=== PATIENT | male | born 1955 | race African-American/Black ===

== ENCOUNTER 2018-12-13 13:28 | Emergency (ER) | payer OTHER ==
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
[2018-12-13 13:45] VITALS: BP 115/84; PULSE 68; TEMP 98; BMI 27.2
[2018-12-13] MEDS ORDERED: KETOROLAC TROMETHAMINE 30 MG/1 ML VIAL IM ONE (14:39)
[2018-12-13] MEDS ORDERED: diazePAM 5 MG TABLET PO ONE (14:41)
[2018-12-13] MEDS ORDERED: KETOROLAC TROMETHAMINE 30 MG/1 ML VIAL ONE (14:43)
[2018-12-13] MEDS ORDERED: diazePAM 5 MG TABLET ONE (14:43)
== END 2018-12-13 15:51 | disposition home or self-care (01) ==
LOC: FER 13:28
PROC: 3E0233Z Introduction of Anti-inflammatory into Muscle, Percutaneous Approach (ICD-10-PCS; principal; 2018-12-13)
DX: Z04.1 Encounter for examination and observation following transport accident (principal); M54.2 Cervicalgia; V43.52XA Car driver injured in collision with other type car in traffic accident, initial encounter; Y93.89 Activity, other specified; Y92.410 Unspecified street and highway as the place of occurrence of the external cause
CPT/HCPCS: 72125-TC; 99282-25

== ENCOUNTER 2019-02-02 09:22 | Emergency (ER) | payer OTHER ==
[2019-02-02 09:26] VITALS: BP 134/91; PULSE 79; TEMP 98.5; BMI 27.2
[2019-02-02] MEDS ORDERED: IBUPROFEN 600 MG TABLET (FP) PO ONE ×2 (09:43→09:51)
--- NOTE | 2019-02-02 09:52 | PDOC ---
History of Present Illness - General Chief Complaint: Sore Throat Stated Complaint: SORE THROAT Time Seen by Provider: 02/02/19 09:23 - History of Present Illness Initial Comments: Mr. Max is 63 YO male with PMH significant for HTN presenting with a 2-day history of sore throat, headache, and productive cough with white non- malodorous sputum. He suspects he has strep throat because he had it in 2003. Is taking emergen-C and one dose of tylenol for the RAMIREZ. No sick contacts. No introduction to new foods. Denies N/V, SOB, pleuritic chest pain, abdominal pain , or diarrhea. PMHx: none Sx: orthopedic surgery in c-spine, b/l hips, left elbow; benign lumbar spine tumor s/p resection Meds: none Allergies: none Past History - Past Medical History Allergies/Adverse Reactions: Allergies Allergy/AdvReac Type Severity Reaction Status Date / Time No Known Allergies Allergy Verified 02/02/19 09:23 Home Medications: Ambulatory Orders NK [No Known Home Medication] 02/02/19 COPD: No - Psycho Social/Smoking Cessation Hx Smoking History: Never smoked Hx Alcohol Use: No Drug/Substance Use Hx: No Review of Systems - Review of Systems Comments:: GENERAL/CONSTITUTIONAL: No fever or chills. No weakness._ HEAD, EYES, EARS, NOSE AND THROAT: No change in vision. No change in hearing. Reports sore throat. CARDIOVASCULAR: No chest pain or shortness of breath_ RESPIRATORY: Reports cough, denies hemoptysis_ GASTROINTESTINAL: No nausea, vomiting, diarrhea or constipation._ GENITOURINARY: No dysuria, frequency, or change in urination._ MUSCULOSKELETAL: No joint or muscle swelling or pain. No neck or back pain._ SKIN: No rash_ NEUROLOGIC: Reports headache. No vertigo, loss of consciousness, or change in strength/sensation._ ENDOCRINE: No increased thirst. No abnormal weight change_ HEMATOLOGIC/LYMPHATIC: No anemia, easy bleeding, or history of blood clots._ ALLERGIC/IMMUNOLOGIC: No hives or skin allergy._ *Physical Exam - Vital Signs Last Vital Signs Temp Pulse Resp BP Pulse Ox 98.5 F 79 16 134/91 100 02/02/19 09:23 02/02/19 09:23 02/02/19 09:23 02/02/19 09:23 02/02/19 09:23 - Physical Exam Comments: GENERAL: Awake, alert, and oriented to person/place/time, in no acute distress_ HEAD: No signs of trauma, normocephalic, atraumatic _ EYES: PERRLA, EOMI, sclera anicteric, conjunctiva clear_ ENT: Hearing grossly normal, nares patent. Oropharynx mildly erythematous and without exudates. No enlargement of tonsils. No uvular deviation. Moist mucosa. NECK: Normal ROM, supple, positive non-tender cervical lymphadenopathy. LUNGS: No distress, speaks in full sentences, clear to auscultation bilaterally _ HEART: Regular rate and rhythm, normal S1 and S2, no murmurs appreciated, peripheral pulses normal and equal bilaterally._ ABDOMEN: Soft, nontender, normoactive bowel sounds. No guarding, no rebound. No masses_ EXTREMITIES: Normal inspection, Normal range of motion, no edema. No clubbing or cyanosis_ NEUROLOGICAL: Cranial nerves II through XII grossly intact. Normal speech, normal gait, no focal sensorimotor deficits _ SKIN: Warm, Dry, normal turgor, no rashes or lesions noted_ Medical Decision Making - Medical Decision Making 02/02/19 09:58 63M presenting with cough, sore throat, headache. Centor score 1. -flu swab -motrin 02/02/19 11:30 rapid strep negative. plan to d/c home, symptomatic relief, f/u PCP PRN. Discharge - Discharge Information Problems reviewed: Yes Clinical Impression/Diagnosis: URI (upper respiratory infection) Qualifiers: URI type: unspecified viral URI Qualified Code(s): J06.9 - Acute upper respiratory infection, unspecified Condition: Stable Disposition: HOME - Follow up/Referral Referrals: aJg Lobo MD [Primary Care Provider] - - Patient Discharge Instructions Patient Printed Discharge Instructions: DI for Viral Upper Respiratory Infection -- Adult Additional Instructions: Your symptoms are most consistent with a viral upper respiratory infection. There is no evidence at this time of a strep throat infection, and an initial culture was negative. Activity as tolerated. Stay hydrated. Tylenol 1000 mg every 8 hours and/or ibuprofen 600 mg every 8 hours as needed for pain. Take over the counter decongestants as needed. Continue your medications as previously prescribed by your physician. You should follow up with your primary doctor as needed regarding today's emergency department visit. Return to the emergency department for any new or concerning symptoms, particularly persistent or worsening high fever, worsening cough or lung pain or difficulty breathing, severe generalized weakness. - Post Discharge Activity
--- NOTE | 2019-02-02 10:36 | PDOC ---
Attending Attestation - Resident Resident Name: AdalbertoRamesh - ED Attending Attestation I have performed the following: I have examined & evaluated the patient, The case was reviewed & discussed with the resident, I agree w/resident's findings & plan - HPI HPI: 02/02/19 10:32 63-year-old healthy male (h/o spine surgeries) p/w 2d throat pain and one day dry cough with sinus congestion. Tmax 99, slight body aches. +odynophagia but no dysphagia, no voice change, tolerating PO. cough dry, no SOB/YU. no travel or known sick contacts. Had strep throat 15y ago, but no recurring infections or ENT surgery. non-smoker. - Physicial Exam PE: 02/02/19 10:34 vss, afebrile pleasant, ambulatory, conversant with full sentences and clear voice neck supple, +surgical spine incisional scar. OP clear without swelling/exudate/ plaques. subtle LAD. heart regular, lungs clear without wheeze/crackles/focally decreased breath sounds - Medical Decision Making 02/02/19 10:35 63-year-old healthy male with URI symptoms for 2 days of sore throat and nasal congestion/dry cough, afebrile here with low Cerner score and no airway or respiratory compromise. Rapid strep negative Likely viral etiology, continue with Tylenol and NSAIDs as needed and over-the- counter decongestants Counseled regarding return criteria for symptoms or signs of pneumonia, no indication for imaging at this time. Understands return criteria. Discharge - Discharge Information Problems reviewed: Yes Clinical Impression/Diagnosis: URI (upper respiratory infection) Qualifiers: URI type: unspecified viral URI Qualified Code(s): J06.9 - Acute upper respiratory infection, unspecified Condition: Stable Disposition: HOME - Follow up/Referral Referrals: Jag Lobo MD [Primary Care Provider] - - Patient Discharge Instructions Patient Printed Discharge Instructions: DI for Viral Upper Respiratory Infection -- Adult Additional Instructions: Your symptoms are most consistent with a viral upper respiratory infection. There is no evidence at this time of a strep throat infection, and an initial culture was negative. Activity as tolerated. Stay hydrated. Tylenol 1000 mg every 8 hours and/or ibuprofen 600 mg every 8 hours as needed for pain. Take over the counter decongestants as needed. Continue your medications as previously prescribed by your physician. You should follow up with your primary doctor as needed regarding today's emergency department visit. Return to the emergency department for any new or concerning symptoms, particularly persistent or worsening high fever, worsening cough or lung pain or difficulty breathing, severe generalized weakness. - Post Discharge Activity
== END 2019-02-02 10:52 | disposition home or self-care (01) ==
LOC: FER 09:22
DX: J06.9 Acute upper respiratory infection, unspecified (principal); I10 Essential (primary) hypertension
CPT/HCPCS: 87070; 87880; 99282-25

== ENCOUNTER 2019-10-16 11:51 | Emergency (ER) | payer OTHER ==
--- NOTE | 2019-10-16 12:16 | PDOC ---
History of Present Illness - General Chief Complaint: Edema Stated Complaint: LEFT ARM SWELLING AND TIGHT SENSATION Time Seen by Provider: 10/16/19 12:13 - History of Present Illness Initial Comments: 10/16/19 13:07 64yo male with hx of c spine sx, l-spine sx (tumor removed), hip replacement and covid-19+ in June presents for eval of joint pain and swelling. Pt states he woke up today and felt his L arm was tight, swollen and had pain at the L elbow and wrist. States last night his L ankle felt swollen and tight. States he slept with his leg elevated and it is better today. Pt states about a week ago he had pain the R shoulder and R hip which has resolved. States since having covid (june) he has not worked out, but has been working out recently - jumping rope 2x this week. Pt denies recent tick bites, no rashes. Pt states he felt a little discomfort in his upper abd - hx of gerd. Denies cp/sob. No palpitations. No f/c. No cough. No merritt. No neck or back pain. Pt currently works as a [employer] for [employer]. 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 Pt denies abd pain. No n/v/d. States he has been eating some salty food recently, but also states he is a vegan. Pt denies all other complaints. Past History - Medical History Allergies/Adverse Reactions: Allergies Allergy/AdvReac Type Severity Reaction Status Date / Time No Known Allergies Allergy Verified 10/16/19 11:53 Home Medications: Ambulatory Orders NK [No Known Home Medication] 10/16/19 COPD: No Other medical history: COVID 04 JULY 2019 - Psycho-Social/Smoking History Smoking History: Never smoked Have you smoked in the past 12 months: No Information on smoking cessation initiated: No - Substance Abuse Hx (Audit-C & DAST Scrn) How often the patient has a drink containing alcohol: Never Score: In Men: 4 or > Positive; In Women: 3 or > Positive: 0 Screen Result (Pos requires Nsg. Audit-10AR): Negative In the last yr the pt used illegal drug/Rx for NonMed reason: No Score: Yes response is considered Positive: 0 Screen Result (Positive result requires Nsg. DAST-10): Negative Review of Systems - Review of Systems Able to Perform ROS?: Yes Is the patient limited Pakistani proficient: No Constitutional: No: Chills, Fever HEENTM: No: Ear Pain, Nose Congestion, Throat Pain Respiratory: No: Cough, Shortness of Breath, Wheezing Cardiac (ROS): No: Chest Pain, Lightheadedness, Palpitations ABD/GI: Yes: Other (epigastric pain). No: Diarrhea, Nausea, Vomiting, Abdominal cramping : No: Burning, Dysuria, Discharge, Flank Pain, Pain Musculoskeletal: Yes: Joint Pain, Joint Swelling, Joint Stiffness. No: Back Pain, Neck Pain Integumentary: No: Erythema, Lesions, Lumps, Rash Neurological: No: Headache, Numbness, Paresthesia, Tingling, Tremors, Weakness, Ataxia All Other Systems: Reviewed and Negative *Physical Exam - Vital Signs Last Vital Signs Temp Pulse Resp BP Pulse Ox 98.2 F 80 16 112/81 98 10/16/19 11:53 10/16/19 11:53 10/16/19 11:53 10/16/19 11:53 10/16/19 11:53 - Physical Exam General Appearance: Yes: Nourished, Appropriately Dressed. No: Apparent Distress HEENT: positive: EOMI, Normal Voice Neck: positive: Supple, Other (well healed incision to the c spine with a keloid formation). negative: Tender midline Respiratory/Chest: positive: Lungs Clear, Normal Breath Sounds. negative: Chest Tender, Respiratory Distress Cardiovascular: positive: Regular Rhythm, Regular Rate, S1, S2. negative: Edema Gastrointestinal/Abdominal: positive: Soft. negative: Guarding, Rebound, Tenderness Musculoskeletal: positive: Normal Inspection, Other (well healed incision to the l spine). negative: Vertebral Tenderness Extremity: positive: Normal Capillary Refill, Normal Range of Motion, Inflammation (L elbow ttp over the medial epicondyle, normal rom, no pain with active or passive rom, neg L wrist ttp over anatomic snuff box, no pain with supination/pronation of the forearm, no pain with flexion/extension fo the wrist, no ttp over the muscles in the forearm, FROM of b/l UE, no calf ttp b/l, ankles with FROM b/l, pulese intact, ambulatory in the ER with a steady gait). negative: Pedal Edema, Swelling Integumentary: positive: Normal Color, Dry, Warm. 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 negative: Sensory Deficit Heart Score/ECG Review - ECG Intrepretation Comment:: 10/16/19 13:14 sinus at 72, 1st degree av block, t wave inversions v5-6, mild st depression II, III, no changes from prior ekg 03/2019 ED Treatment Course - LABORATORY CBC & Chemistry Diagram: 10/16/19 13:32 10/16/19 13:32 - RADIOLOGY Radiology Studies Ordered: Category Date Time Status CHEST PA & LAT [RAD] Stat Radiology 10/16/19 12:14 Ordered ELBOW-LEFT [RAD] Stat Radiology 10/16/19 12:14 Ordered WRIST W/HAND-LEFT* [RAD] Stat Radiology 10/16/19 12:14 Ordered DUPLEX VASCUL US-1 ARM [US] Stat Ultrasound 10/16/19 12:15 Ordered Medical Decision Making - Medical Decision Making 10/16/19 13:14 a/p: 64yo male with L arm pain -recent covid infection in June, will send for duplex ultrasound -xray joints -poss arthritis vs tendonitis -also with epigastric pain, will send labs, ekg, trop -recent workout program, will send CK -will give ivf hydration, toradol for pain -no cp/sob/cough/f/c. -pt ambulatory in the ER with a steady gait -will monitor and reassess 10/16/19 13:31 cxr clear wrist xray without fx elbow xray without fx, shows arthritis, wet reads on all xrays pending official reads 10/16/19 14:00 cbc reviewed and stable trop neg 10/16/19 14:54 no dvt bnp pending 10/16/19 14:58 pt states feeling better bnp 71 discussed labs and ekg pt states he was told by his cards that his EKG is abnl, had a stress 2 years ago and normal states he will call his cards, ortho at [facility], pmd this week for follow up pt finishing ivf stable for dc to home Discharge - Discharge Information Problems reviewed: Yes Clinical Impression/Diagnosis: Joint pain, Elbow pain, left Condition: Stable Disposition: HOME - Admission No - Follow up/Referral Referrals: Orthopedics, [facility] [Other] - Patient Discharge Instructions Patient Printed Discharge Instructions: DI for Joint Pain, DI for Arthralgia Additional Instructions: Please apply ice - 20 min on and 20 min off. You may take tylenol or motrin as needed for pain. 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 A lyme test was sent and we will call you with the results. Please return to the ER with any further concerns or complaints. - Post Discharge Activity
[2019-10-16] MEDS ORDERED: LACTATED RINGERS SOLUTION 1000 ML INFUS.BAG IV ONE (12:17)
[2019-10-16] MEDS ORDERED: KETOROLAC TROMETHAMINE 15 MG/ML VIAL IVPUSH ONE (12:17)
[2019-10-16 12:25] VITALS: BP 112/81; PULSE 80; TEMP 98.2; BMI 27.8
[2019-10-16] MEDS ORDERED: KETOROLAC TROMETHAMINE 15 MG/ML VIAL ONE (13:18)
[2019-10-16 13:36] LABS: BASO % 1.1 % (0-2.0); EOS % 0.9 % (0-4.5); HEMOGLOBIN 14.8 GM/dl (11.7-16.9); LYMPH % 23.1 % (8-40); MCHC 34.3 g/dl (32.0-35.9); MEAN CELL VOLUME 90.4 fl (80-96); MEAN PLT VOLUME 7.4 fl (7.5-11.1); MONO % 7.2 % (3.8-10.2); NEUT % 67.7 % (42.8-82.8); PLATELET COUNT 274 K/MM3 (134-434); RBC 4.75 M/mm3 (4.00-5.60); RDW 12.6 % (11.9-15.9); WHITE BLOOD COUNT 4.9 K/mm3 (4.0-10.8)
[2019-10-16 13:59] LABS: ALBUMIN 3.6 g/dl (3.4-5.0); BILIRUBIN,TOTAL 1.1 mg/dl (0.2-1); CALCIUM 8.5 mg/dl (8.5-10); POTASSIUM 4.2 mmol/L (3.5-5.1); TOT PROT 6.1 g/dl (6.4-8.2)
[2019-10-16 14:54] LABS: N-TERMINAL BNP 71.2 pg/ml (5-125)
--- NOTE | 2019-10-18 10:25 | EKG ---
Test Reason : Blood Pressure : / mmHG Vent. Rate : 072 BPM Atrial Rate : 072 BPM P-R Int : 202 ms QRS Dur : 088 ms QT Int : 414 ms P-R-T Axes : 089 -16 -86 degrees QTc Int : 453 ms NORMAL SINUS RHYTHM IRBBB ABNORMAL ECG WHEN COMPARED WITH ECG OF 25-MAR-2019 10:43, [place] INTERVAL HAS DECREASED T WAVE INVERSION NOW EVIDENT IN INFERIOR LEADS INVERTED T WAVES HAVE REPLACED NONSPECIFIC T WAVE ABNORMALITY IN LATERAL LEADS Confirmed by Oralia Tavarez ([id number]) on 10/18/2019 10:25:12 AM Referred By: RICHARD MENDOZA Confirmed By:Oralia Tavarez
== END 2019-10-16 15:30 | disposition home or self-care (01) ==
LOC: FER 11:51
PROC: 3E0233Z Introduction of Anti-inflammatory into Muscle, Percutaneous Approach (ICD-10-PCS; principal; 2019-10-16)
DX: M25.522 Pain in left elbow (principal)
CPT/HCPCS: 36415; 71046-TC-FY; 73070-TC-LT-FY; 73110-TC-LT-FY; 73130-TC-LT-FY; 80053; 82550; 83880; 84484; 85025; 93005; 93971; 99284-25

== ENCOUNTER 2020-05-26 20:00 | Emergency (ER) | payer OTHER ==
[2020-05-26 20:07] VITALS: BP 156/94; PULSE 68; TEMP 98.8; BMI 28.6
== END 2020-05-26 21:49 | disposition home or self-care (01) ==
LOC: FER 20:00
DX: B34.9 Viral infection, unspecified (principal)
CPT/HCPCS: 87804; 87880; 99283-25; C9803; U0003

== ENCOUNTER 2020-10-23 08:26 | Emergency (ER) | payer OTHER ==
[2020-10-23 08:34] VITALS: BP 117/78; PULSE 81; TEMP 97.8; BMI 27.5
[2020-10-23] MEDS ORDERED: DIPHTH,PERTUSS(ACELL),TET 0.5 ML DISP.SYRIN IM ONE ×2 (08:34→08:56)
[2020-10-23] MEDS ORDERED: LIDOCAINE HCL 2% (20ML MULTI-DOSE VIAL) ONE (09:43)
== END 2020-10-23 10:04 | disposition home or self-care (01) ==
LOC: FER 08:26
PROC: 0HQGXZZ Repair Left Hand Skin, External Approach (ICD-10-PCS; principal; 2020-10-23)
PROC: 3E0234Z Introduction of Serum, Toxoid and Vaccine into Muscle, Percutaneous Approach (ICD-10-PCS; 2020-10-23)
DX: S61.217A Laceration without foreign body of left little finger without damage to nail, initial encounter (principal); W25.XXXA Contact with sharp glass, initial encounter; Y92.002 Bathroom of unspecified non-institutional (private) residence as the place of occurrence of the external cause; Y93.E1 Activity, personal bathing and showering
CPT/HCPCS: 12001; 73130-TC-LT-FY; 90471; 90715; 99284-25

== ENCOUNTER 2020-11-02 19:14 | Emergency (ER) | payer OTHER ==
[2020-11-02 19:19] VITALS: BP 127/84; PULSE 71; TEMP 97.9; BMI 27.5
[2020-11-02] MEDS ORDERED: CEPHALEXIN MONOHYDRATE 500 MG CAPSULE (UD) PO ONE (19:31)
[2020-11-02] MEDS ORDERED: CEPHALEXIN MONOHYDRATE 500 MG CAPSULE (UD) ONE (19:43)
== END 2020-11-02 19:46 | disposition home or self-care (01) ==
LOC: FER 19:14
DX: S61.217A Laceration without foreign body of left little finger without damage to nail, initial encounter (principal); L08.89 Other specified local infections of the skin and subcutaneous tissue; Y99.9 Unspecified external cause status; Z48.02 Encounter for removal of sutures
CPT/HCPCS: 99283-25

== ENCOUNTER 2021-01-20 15:55 | Emergency (ER) | payer OTHER ==
[2021-01-20 16:39] VITALS: BP 117/87; PULSE 76; TEMP 99; BMI 25.9
[2021-01-20] MEDS ORDERED: NAPROXEN 375 MG TABLET PO ONE (16:43)
[2021-01-20] MEDS ORDERED: NAPROXEN 375 MG TABLET ONE (17:19)
== END 2021-01-20 18:17 | disposition home or self-care (01) ==
LOC: FER 15:55
DX: S43.402A Unspecified sprain of left shoulder joint, initial encounter (principal); S53.402A Unspecified sprain of left elbow, initial encounter; W19.XXXA Unspecified fall, initial encounter; Y92.9 Unspecified place or not applicable
CPT/HCPCS: 73030-TC-LT-FY; 73070-TC-LT-FY; 99284-25

== ENCOUNTER 2021-02-05 20:55 | Emergency (ER) | payer OTHER ==
[2021-02-05 21:04] VITALS: BP 127/88; PULSE 76; TEMP 97.8; BMI 27.5
== END 2021-02-05 22:04 | disposition home or self-care (01) ==
LOC: FER 20:55
DX: S60.221A Contusion of right hand, initial encounter (principal); W22.09XA Striking against other stationary object, initial encounter
CPT/HCPCS: 73130-TC-RT-FY; 99283-25

== ENCOUNTER 2021-02-19 11:24 | Emergency (ER) | payer OTHER ==
[2021-02-19] MEDS ORDERED: ACETAMINOPHEN 325 MG TABLET (FP) PO ONE (11:37)
[2021-02-19] MEDS ORDERED: ALBUTEROL SO4 2.5/IPRATROPIUM 0.5 INH SOL 3 ML VIAL.NEB. NEB ONE ×2 (11:39→11:47)
[2021-02-19 11:43] VITALS: BP 122/90; PULSE 74; TEMP 99; BMI 27.5
[2021-02-19] MEDS ORDERED: ACETAMINOPHEN 325 MG TABLET (FP) ONE (11:47)
== END 2021-02-19 13:00 | disposition home or self-care (01) ==
LOC: FER 11:24
PROC: 3E0F7GC Introduction of Other Therapeutic Substance into Respiratory Tract, Via Natural or Artificial Opening (ICD-10-PCS; principal; 2021-02-19)
DX: J20.9 Acute bronchitis, unspecified (principal); J06.9 Acute upper respiratory infection, unspecified
CPT/HCPCS: 71046-TC-FY; 87804; 87807; 99284-25; C9803; U0003; U0005

== ENCOUNTER 2021-03-16 12:09 | Emergency (ER) | payer OTHER ==
[2021-03-16 12:45] VITALS: BP 142/88; PULSE 83; TEMP 99.1; BMI 27.5
[2021-03-18 07:06] LABS: SARS-CoV-2 NAA Detected (Not Detected)
== END 2021-03-16 13:14 | disposition home or self-care (01) ==
LOC: FER 12:09
DX: J40 Bronchitis, not specified as acute or chronic (principal)
CPT/HCPCS: 87804; 99283-25; C9803; U0003; U0005

== ENCOUNTER 2022-02-01 16:19 | Emergency (ER) | payer OTHER ==
[2022-02-01] MEDS ORDERED: ACETAMINOPHEN 500 MG TABLET (FP) PO ONE (16:36)
[2022-02-01] MEDS ORDERED: ACETAMINOPHEN 325 MG TABLET (FP) ONE (16:46)
[2022-02-01 16:47] VITALS: BP 130/89; PULSE 79; RESP 18; TEMP 98.1; BMI 28.0
[2022-02-01] MEDS ORDERED: AZITHROMYCIN 250 MG TABLET PO ONE (17:03)
[2022-02-01] MEDS ORDERED: ALBUTEROL SO4 HFA INHALER IH ONE ×2 (17:04→17:36)
[2022-02-01] MEDS ORDERED: AZITHROMYCIN 250 MG TABLET ONE (17:36)
== END 2022-02-01 17:50 | disposition home or self-care (01) ==
LOC: FER 16:19
PROC: 3E0F7GC Introduction of Other Therapeutic Substance into Respiratory Tract, Via Natural or Artificial Opening (ICD-10-PCS; principal; 2022-02-01)
DX: J40 Bronchitis, not specified as acute or chronic (principal)
CPT/HCPCS: 0241U-QW; 71045-TC-FY; 99284-25

== ENCOUNTER 2022-04-24 07:45 | Emergency (ER) | payer OTHER ==
[2022-04-24 07:55] VITALS: BP 129/88; PULSE 73; RESP 18; TEMP 97.8; BMI 27.7
[2022-04-24] MEDS ORDERED: IBUPROFEN 400 MG TABLET (FP) PO ONE ×2 (08:11→08:19)
== END 2022-04-24 10:34 | disposition home or self-care (01) ==
LOC: FER 07:45
DX: M70.21 Olecranon bursitis, right elbow (principal)
CPT/HCPCS: 73070-TC-RT-FY; 99283-25

== ENCOUNTER 2022-11-10 09:52 | Emergency (ER) | payer OTHER ==
[2022-11-10 10:00] VITALS: BP 126/93; PULSE 70; RESP 18; TEMP 97.7; BMI 27.0
[2022-11-10] MEDS ORDERED: ALBUTEROL SO4 2.5/IPRATROPIUM 0.5 INH SOL 3 ML VIAL.NEB. NEB ONE ×2 (10:04→10:17)
== END 2022-11-10 11:25 | disposition home or self-care (01) ==
LOC: FER 09:52
PROC: 3E0F7GC Introduction of Other Therapeutic Substance into Respiratory Tract, Via Natural or Artificial Opening (ICD-10-PCS; principal; 2022-11-10)
DX: R05.9 Cough, unspecified (principal); R06.2 Wheezing; J40 Bronchitis, not specified as acute or chronic; Z20.822 Contact with and (suspected) exposure to COVID-19
CPT/HCPCS: 0241U-QW; 71045-TC-FY; 99284-25

== ENCOUNTER 2022-11-20 10:03 | Emergency (ER) | payer OTHER ==
[2022-11-20 10:21] VITALS: BP 138/81; PULSE 75; RESP 16; TEMP 98; BMI 32.3
[2022-11-20] MEDS ORDERED: DEXAMETHASONE SOD PHOSPHATE 10 MG/1 ML VIAL IVPUSH ONE (10:25)
[2022-11-20] MEDS ORDERED: ALBUTEROL SO4 2.5/IPRATROPIUM 0.5 INH SOL 3 ML VIAL.NEB. NEB ONE ×3 (10:25→10:31)
[2022-11-20] MEDS ORDERED: DEXAMETHASONE SOD PHOSPHATE 4 MG/1 ML VIAL ONE (10:30)
== END 2022-11-20 11:51 | disposition home or self-care (01) ==
LOC: FER 10:03
PROC: 3E033NZ Introduction of Analgesics, Hypnotics, Sedatives into Peripheral Vein, Percutaneous Approach (ICD-10-PCS; principal; 2022-11-20)
PROC: 3E0F7GC Introduction of Other Therapeutic Substance into Respiratory Tract, Via Natural or Artificial Opening (ICD-10-PCS; 2022-11-20)
DX: R51.9 Headache, unspecified (principal); R09.82 Postnasal drip; J43.9 Emphysema, unspecified; J40 Bronchitis, not specified as acute or chronic; Z20.822 Contact with and (suspected) exposure to COVID-19
CPT/HCPCS: 71046-TC-FY; 99284-25; J1100

== ENCOUNTER 2023-05-19 09:53 | Emergency (ER) | payer OTHER ==
[2023-05-19 10:11] VITALS: BP 141/90; PULSE 67; RESP 20; TEMP 98.2; BMI 27.0
[2023-05-19] MEDS ORDERED: METHOCARBAMOL 500 MG TABLET ONE (10:32)
[2023-05-19] MEDS ORDERED: KETOROLAC TROMETHAMINE 30 MG/1 ML VIAL ONE (10:32)
[2023-05-19] MEDS ORDERED: LIDOCAINE 5% TOPICAL PATCH ONE (10:32)
[2023-05-19] MEDS: LIDOCAINE 5% TOPICAL PATCH TP ONE (10:33)
[2023-05-19] MEDS: KETOROLAC TROMETHAMINE 30 MG/1 ML VIAL IM ONE (10:33)
[2023-05-19] MEDS: METHOCARBAMOL 500 MG TABLET PO ONE (10:33)
== END 2023-05-19 11:22 | disposition home or self-care (01) ==
LOC: FER 09:53
PROC: 3E0233Z Introduction of Anti-inflammatory into Muscle, Percutaneous Approach (ICD-10-PCS; principal; 2023-05-19)
DX: M54.50 Low back pain, unspecified (principal); V49.49XA Driver injured in collision with other motor vehicles in traffic accident, initial encounter
CPT/HCPCS: 99284-25

== ENCOUNTER 2023-05-24 06:59 | Emergency (ER) | payer OTHER ==
[2023-05-24 07:12] VITALS: BP 127/90; PULSE 81; RESP 16; TEMP 98.1; BMI 27.0
== END 2023-05-24 09:25 | disposition home or self-care (01) ==
LOC: FER 06:59
DX: R20.0 Anesthesia of skin (principal); G56.22 Lesion of ulnar nerve, left upper limb
CPT/HCPCS: 72050-TC-FY; 73070-TC-LT-FY; 73110-TC-LT-FY; 99284-25

== ENCOUNTER 2023-06-14 11:02 | Emergency (ER) | payer OTHER ==
[2023-06-14] MEDS ORDERED: ALBUTEROL SO4 2.5/IPRATROPIUM 0.5 INH SOL 3 ML VIAL.NEB. NEB ONE ×2 (12:15→14:59)
[2023-06-14] MEDS: ALBUTEROL SO4 2.5/IPRATROPIUM 0.5 INH SOL 3 ML VIAL.NEB. NEB ONE ×2 (12:18→15:04)
[2023-06-14 12:30] VITALS: BP 132/93; PULSE 81; RESP 18; TEMP 98.9; BMI 24.1
[2023-06-14 13:08] LABS: HEMATOCRIT 42.8 % (35.4-49); HEMOGLOBIN 14.4 G/dL (11.7-16.9); MCH 30.9 pg (25.7-33.7); MCHC 33.7 g/dl (32.0-35.9); MEAN CELL VOLUME 91.8 fl (80-96); MEAN PLT VOLUME 7.2 fl (7.5-11.1); PLATELET COUNT 176.5 10^3/uL (134-434); RBC 4.66 10^6/uL (4.00-5.60); RDW 13.9 % (11.9-15.9); WHITE BLOOD COUNT 7.5 10^3/uL (4.0-10.8)
[2023-06-14 13:24] LABS: ALBUMIN 3.8 g/dl (3.4-5.0); BILIRUBIN,TOTAL 0.9 mg/dl (0.2-1); CALCIUM 8.8 mg/dl (8.5-10.1); CREATININE 1.2 mg/dl (0.6-1.3); POTASSIUM 4.2 mmol/L (3.5-5.1); TOT PROT 6.4 g/dl (6.4-8.2)
[2023-06-14 13:26] LABS: PLATELET ESTIMATE ADEQUATE
[2023-06-14] MEDS ORDERED: DEXAMETHASONE SOD PHOSPHATE 10 MG/1 ML VIAL ONE (14:58)
[2023-06-14] MEDS ORDERED: ALBUTEROL SO4 HFA INHALER IH ONE (14:58)
[2023-06-14] MEDS: ALBUTEROL SO4 HFA INHALER IH ONE (15:04)
[2023-06-14] MEDS: DEXAMETHASONE SOD PHOSPHATE 10 MG/1 ML VIAL IM ONE (15:04)
== END 2023-06-14 15:55 | disposition home or self-care (01) ==
LOC: FER 11:02
PROC: 3E0F7GC Introduction of Other Therapeutic Substance into Respiratory Tract, Via Natural or Artificial Opening (ICD-10-PCS; principal; 2023-06-14)
PROC: 3E0F7GC Introduction of Other Therapeutic Substance into Respiratory Tract, Via Natural or Artificial Opening (ICD-10-PCS; 2023-06-14)
PROC: 3E023GC Introduction of Other Therapeutic Substance into Muscle, Percutaneous Approach (ICD-10-PCS; 2023-06-14)
DX: R05.9 Cough, unspecified (principal); R09.81 Nasal congestion; R07.89 Other chest pain; Z20.822 Contact with and (suspected) exposure to COVID-19
CPT/HCPCS: 0241U-QW; 36415; 71046-TC-FY; 80053; 84484; 85027; 93005; 99285-25; J1100

== ENCOUNTER 2023-09-01 10:12 | Emergency (ER) | payer OTHER ==
[2023-09-01 10:28] VITALS: BP 132/82; PULSE 63; RESP 16; TEMP 98.1; BMI 27.5
[2023-09-01] MEDS ORDERED: METOCLOPRAMIDE HCL INJECTION 10 MG/2 ML VIAL ONE (10:50)
[2023-09-01] MEDS: SODIUM CHLORIDE 0.9% 500 ML INFUS.BAG IV ONE (11:16)
[2023-09-01 11:17] LABS: HEMATOCRIT 44.9 % (35.4-49); HEMOGLOBIN 14.6 G/dL (11.7-16.9); MCH 30.1 pg (25.7-33.7); MCHC 32.6 g/dl (32.0-35.9); MEAN CELL VOLUME 92.6 fl (80-96); MEAN PLT VOLUME 7.2 fl (7.5-11.1); PLATELET COUNT 211.2 10^3/uL (134-434); RBC 4.85 10^6/uL (4.00-5.60); RDW 13.7 % (11.9-15.9)
[2023-09-01] MEDS: METOCLOPRAMIDE HCL INJECTION 10 MG/2 ML VIAL IVPUSH ONE (11:17)
[2023-09-01 11:24] LABS: INR 0.93 (0.83-1.09); PROTHROMBIN TIME (PATIENT) 10.6 SEC (9.7-13.0)
[2023-09-01 11:26] LABS: ACTIVATED PTT 34.3 SECONDS (25.2-36.5)
[2023-09-01 11:34] LABS: ALBUMIN 3.6 g/dl (3.4-5.0); BILIRUBIN,TOTAL 0.7 mg/dl (0.2-1); CALCIUM 8.6 mg/dl (8.5-10.1); CREATININE 1.2 mg/dl (0.6-1.3); POTASSIUM 4.3 mmol/L (3.5-5.1); TOT PROT 5.8 g/dl (6.4-8.2)
[2023-09-01] MEDS: hydrOXYzine PAMOATE 25 MG CAPSULE (FP) PO ONE (12:33)
== END 2023-09-01 12:35 | disposition left against medical advice (07) ==
LOC: FER 10:12
PROC: 3E033GC Introduction of Other Therapeutic Substance into Peripheral Vein, Percutaneous Approach (ICD-10-PCS; principal; 2023-09-01)
DX: R51.9 Headache, unspecified (principal)
CPT/HCPCS: 36415; 70450-TC; 80053; 85027; 85610; 85730; 96374; 99284-25

== ENCOUNTER 2024-02-07 13:22 | Observation (INO) | payer OTHER ==
[2024-02-07 14:41] LABS: HEMATOCRIT 44.5 % (35.4-49); HEMOGLOBIN 15.3 G/dL (11.7-16.9); MCH 31.1 pg (25.7-33.7); MCHC 34.3 g/dl (32.0-35.9); MEAN CELL VOLUME 90.9 fl (80-96); MEAN PLT VOLUME 7.4 fl (7.5-11.1); PLATELET COUNT 200.6 10^3/uL (134-434); RDW 13.2 % (11.9-15.9); WHITE BLOOD COUNT 5.1 10^3/uL (4.0-10.8)
[2024-02-07 14:43] LABS: PLATELET ESTIMATE ADEQUATE
[2024-02-07 14:44] LABS: ALBUMIN 3.8 g/dl (3.4-5.0); BILIRUBIN,TOTAL 0.8 mg/dl (0.2-1); CALCIUM 8.9 mg/dl (8.5-10.1); CREATININE 1.2 mg/dl (0.6-1.3); POTASSIUM 3.8 mmol/L (3.5-5.1); TOT PROT 6.4 g/dl (6.4-8.2)
[2024-02-07] MEDS ORDERED: PIPERACILLIN/TAZOBACTAM 3.375 GM VIAL IVPB ONE (16:02)
[2024-02-07] MEDS ORDERED: methylPREDNISolone NA SUCC 125 MG/2 ML VIAL ONE (16:02)
[2024-02-07] MEDS ORDERED: ASPIRIN 81 MG CHEWABLE TABLETS ONE ×2 (16:03→16:07)
[2024-02-07] MEDS: methylPREDNISolone NA SUCC 125 MG/2 ML VIAL IVPB ONE (16:12)
[2024-02-07] MEDS: PIPERACILLIN/TAZOB 3.375 GM 3.375 GM in DEXTROSE 5%-WATER - 50 ML IVPB ONE (16:12)
[2024-02-07] MEDS: ALBUTEROL SO4 2.5/IPRATROPIUM 0.5 INH SOL 3 ML VIAL.NEB. NEB ONE (16:12)
[2024-02-07] MEDS: ASPIRIN 81 MG CHEWABLE TABLETS PO ONE (16:12)
[2024-02-07] MEDS ORDERED: ALBUTEROL SO4 2.5/IPRATROPIUM 0.5 INH SOL 3 ML VIAL.NEB. NEB PRN (16:28)
[2024-02-07 17:29] VITALS: BMI 28.2
[2024-02-07] MEDS: methylPREDNISolone NA SUCC 40 MG/1 ML VIAL IVPUSH SCH ×2 (17:50→23:55)
[2024-02-07 22:20] VITALS: RESP 18
[2024-02-08 06:34] VITALS: BP 116/82; PULSE 81; TEMP 98.1
[2024-02-08 10:47] LABS: ALBUMIN 3.9 g/dl (3.4-5.0); BILIRUBIN,TOTAL 0.6 mg/dl (0.2-1); CALCIUM 9.3 mg/dl (8.5-10.1); CREATININE 1.2 mg/dl (0.6-1.3); POTASSIUM 4.5 mmol/L (3.5-5.1); TOT PROT 6.7 g/dl (6.4-8.2)
[2024-02-08 11:13] LABS: N-TERMINAL BNP 32.9 pg/ml (5-125)
[2024-02-08 11:15] LABS: HEMOGLOBIN 14.7 GM/dL (11.7-16.9); MCHC 32.7 g/dl (32.0-35.9); MEAN CELL VOLUME 91.8 fl (80-96); MEAN PLT VOLUME 7.6 fl (7.5-11.1); PLATELET COUNT 236 10^3/uL (134-434); RDW 13.4 % (11.9-15.9); WHITE BLOOD COUNT 12.1 K/mm3 (4.0-10.0)
[2024-02-08 12:32] LABS: ANISOCYTOSIS 0; HELMET CELLS 0; HOWELL-JOLLY BODIES 0; MACROCYTOSIS 0; OVALOCYTE 0; ROULEAU 0; SICKELED CELLS 0; TARGET CELLS 0; TEAR DROP CELLS 0; TOXIC GRANULATION 0
== END 2024-02-08 14:51 | disposition home or self-care (01) ==
LOC: FER 13:22 → FM/S 15:38
PROC: 3E0F7GC Introduction of Other Therapeutic Substance into Respiratory Tract, Via Natural or Artificial Opening (ICD-10-PCS; principal; 2024-02-07)
PROC: 3E033GC Introduction of Other Therapeutic Substance into Peripheral Vein, Percutaneous Approach (ICD-10-PCS; 2024-02-07)
PROC: 3E03329 Introduction of Other Anti-infective into Peripheral Vein, Percutaneous Approach (ICD-10-PCS; 2024-02-07)
PROC: 3E033GC Introduction of Other Therapeutic Substance into Peripheral Vein, Percutaneous Approach (ICD-10-PCS; 2024-02-07)
DX: J45.901 Unspecified asthma with (acute) exacerbation (principal); R94.31 Abnormal electrocardiogram [ECG] [EKG]; E78.5 Hyperlipidemia, unspecified; I10 Essential (primary) hypertension; R05.8 Other specified cough; Z91.013 Allergy to seafood
CPT/HCPCS: 0241U-QW; 36415; 71045-TC-FY; 80053; 80061; 81025; 82962; 83036; 83880; 84439; 84443; 84484; 85025; 85027; 93005; 96374; 99285-25; G0378

== ENCOUNTER 2024-03-21 15:41 | Emergency (ER) | payer OTHER ==
[2024-03-21 17:52] VITALS: BP 134/84; PULSE 88; RESP 18; TEMP 100.9; BMI 27.7
== END 2024-03-21 18:19 | disposition home or self-care (01) ==
LOC: FER 15:41
DX: J10.1 Influenza due to other identified influenza virus with other respiratory manifestations (principal); R50.9 Fever, unspecified; B34.9 Viral infection, unspecified; Z20.822 Contact with and (suspected) exposure to COVID-19
CPT/HCPCS: 0241U-QW; 71046-TC-FY; 99284-25

== ENCOUNTER 2024-12-19 13:14 | Emergency (ER) | payer OTHER ==
[2024-12-19 13:58] VITALS: BP 118/79; PULSE 72; RESP 118; TEMP 98.2; BMI 13.6
== END 2024-12-19 13:48 | disposition home or self-care (01) ==
LOC: FER 13:14
DX: H10.502 Unspecified blepharoconjunctivitis, left eye (principal)
CPT/HCPCS: 99283-25